=== PATIENT | female | born 1980 | race Caucasian/White ===

== ENCOUNTER 2018-02-14 19:25 | Inpatient (IN) | payer MEDICAID ==
[2018-02-14] MEDS: LACTATED RINGER'S 1,000 ML IV ×2 (21:20→22:27)
[2018-02-14 21:27] LABS: ADD MAN DIFF? NO
[2018-02-14 21:30] LABS: BASOPHILS % 0.2 % (0.0-2.0); EOSINOPHILS % 0.2 % (0.0-7.0); HEMATOCRIT 35.8 % (37.0-47.0); HEMOGLOBIN 12.7 g/dl (12.0-16.0); LYMPHOCYTES # 1.5 10^3/ul (0.8-2.9); LYMPHOCYTES % 16.5 % (15.0-51.0); MEAN CORPUSCULAR HEMOGLOBIN 33.3 pg (29.0-33.0); MEAN CORPUSCULAR HGB CONC 35.5 g/dl (32.0-37.0); MEAN PLATELET VOLUME 10.7 fl (7.4-10.4); MONOCYTES % 10.6 % (0.0-11.0); NEUTROPHIL # 6.7 10^3/ul (1.6-7.5); NEUTROPHILS % 71.7 % (39.0-77.0); PLATELET COUNT 218 10^3/UL (140-415); RED BLOOD COUNT 3.81 10^6/ul (4.20-5.40); RED CELL DISTRIBUTION WIDTH 13.4 % (11.5-14.5)
[2018-02-14 21:30] LABS: WHITE BLOOD COUNT 9.3 10^3/ul (4.8-10.8)
[2018-02-14] MEDS ORDERED: CARBOPROST 250 MCG INJ IM (21:30)
[2018-02-14] MEDS ORDERED: METHYLERGONOVINE 0.2 MG INJ IM (21:30)
[2018-02-14] MEDS ORDERED: MISOPROSTOL 200 MCG TAB PR (21:30)
[2018-02-14] MEDS ORDERED: CEFAZOLIN 2 GM/50 ML (PMX) 50 ML IV (21:30)
[2018-02-14] MEDS ORDERED: OXYTOCIN 30 UNITS/LR 500 ML IV ×2 (21:30)
[2018-02-14 21:58] LABS: INR 0.87; PARTIAL THROMBOPLASTIN TIME 29.7 Sec (25.0-35.0); PROTIME 11.9 Sec (11.9-14.9); PT RATIO 0.9
[2018-02-14 22:27] LABS: GLUCOSE 90 mg/dl (70-220)
[2018-02-14] MEDS: ONDANSETRON 4 MG INJ IV (23:14)
[2018-02-14] MEDS: CITRIC ACID/SODIUM CITRATE 15 ML CUP PO (23:14)
[2018-02-15] MEDS ORDERED: OXYTOCIN 10 UNIT INJ (00:09)
[2018-02-15] MEDS ORDERED: morphine SULFATE/PF (10 MG/10 ML) INJ (00:09)
[2018-02-15] MEDS ORDERED: PHENYLephrine (100 MCG/ML) 5ML SYG ×3 (00:09→00:41)
[2018-02-15] MEDS ORDERED: BUPIVACAINE 0.75%/DEXT (SPINAL) 2 ML INJ (00:10)
[2018-02-15] MEDS ORDERED: NALBUPHINE HCL (10 MG/1 ML) INJ IV (00:30)
[2018-02-15] MEDS ORDERED: HYDROmorphONE 0.5 MG/0.5 ML SYG IV ×2 (00:30)
[2018-02-15] MEDS ORDERED: ACETAMINOPHEN 500 MG TAB PO (00:30)
[2018-02-15] MEDS ORDERED: EPHEDrine SULFATE 50 MG/5 ML SYG IV (00:30)
[2018-02-15] MEDS ORDERED: morphine 2 MG INJ IV ×2 (00:30)
[2018-02-15] MEDS ORDERED: HYDROCODONE/APAP (5/325) TAB PO (00:30)
[2018-02-15] MEDS ORDERED: ALBUMIN HUMAN 5% 250 ML IV (00:30)
[2018-02-15] MEDS ORDERED: ONDANSETRON 4 MG INJ IV (00:30)
[2018-02-15] MEDS ORDERED: NALOXONE (0.4 MG/ML) INJ IV (00:30)
[2018-02-15] MEDS ORDERED: DEXAMETHASONE 4 MG/ML 1 ML INJ (00:42)
[2018-02-15] MEDS ORDERED: KETOROLAC 30 MG INJ (00:42)
[2018-02-15] MEDS ORDERED: METOCLOPRAMIDE 10 MG INJ (00:42)
[2018-02-15] MEDS ORDERED: HETASTARCH 6% NACL 500 ML (00:42)
[2018-02-15] MEDS ORDERED: MISOPROSTOL 200 MCG TAB PR (02:30)
[2018-02-15] MEDS ORDERED: CARBOPROST 250 MCG INJ IM (02:30)
[2018-02-15] MEDS ORDERED: METHYLERGONOVINE 0.2 MG INJ IM (02:30)
[2018-02-15] MEDS ORDERED: OXYTOCIN 30 UNITS/LR 500 ML IV (02:30)
[2018-02-15] MEDS ORDERED: METHYLERGONOVINE 0.2 MG TAB PO (02:30)
[2018-02-15] MEDS: OXYTOCIN 30 UNITS/LR 500 ML IV (05:40)
[2018-02-15] MEDS: DEXTROSE 5%-LR 1,000 ML IV ×2 (07:38→10:20)
[2018-02-15] MEDS: KETOROLAC 30 MG INJ IV ×2 (08:32→20:36)
[2018-02-15] MEDS: SENNA/DOCUSATE NA (8.6MG/50MG) TAB PO ×2 (08:33→20:35)
[2018-02-15] MEDS ORDERED: DEXTROSE 5%-LR 1,000 ML IV (12:00)
[2018-02-15 16:44] LABS: RAPID PLASMA REAGIN NONREACTIVE (NR)
[2018-02-15] MEDS: DIPHENHYDRAMINE 50 MG INJ IV (17:03)
[2018-02-15] MEDS: LACTATED RINGER'S 1,000 ML IV ×2 (17:05→21:30)
[2018-02-16] MEDS ORDERED: HYDROCODONE/APAP (5/325) TAB PO (00:12)
[2018-02-16] MEDS: HYDROCODONE/APAP (5/325) TAB PO ×3 (00:28→18:13)
[2018-02-16] MEDS: LACTATED RINGER'S 1,000 ML IV ×3 (05:21→21:30)
[2018-02-16] MEDS: IBUPROFEN 800 MG TAB PO ×3 (05:51→21:58)
[2018-02-16] MEDS: SENNA/DOCUSATE NA (8.6MG/50MG) TAB PO ×2 (09:10→21:58)
[2018-02-16 09:23] LABS: ADD MAN DIFF? NO
[2018-02-16 09:27] LABS: BASOPHILS % 0.2 % (0.0-2.0); EOSINOPHILS % 0.3 % (0.0-7.0); HEMATOCRIT 28.8 % (37.0-47.0); HEMOGLOBIN 9.7 g/dl (12.0-16.0); LYMPHOCYTES # 1.3 10^3/ul (0.8-2.9); LYMPHOCYTES % 12.8 % (15.0-51.0); MEAN CORPUSCULAR HGB CONC 33.7 g/dl (32.0-37.0); MEAN PLATELET VOLUME 10.4 fl (7.4-10.4); MONOCYTE # 0.9 10^3/ul (0.3-0.9); MONOCYTES % 8.9 % (0.0-11.0); NEUTROPHIL # 7.8 10^3/ul (1.6-7.5); NEUTROPHILS % 77.2 % (39.0-77.0); PLATELET COUNT 178 10^3/UL (140-415); RED BLOOD COUNT 2.94 10^6/ul (4.20-5.40); RED CELL DISTRIBUTION WIDTH 13.9 % (11.5-14.5)
[2018-02-16 09:27] LABS: WHITE BLOOD COUNT 10.1 10^3/ul (4.8-10.8)
[2018-02-16] MEDS: MAGNESIUM HYDROXIDE 30ML CUP PO ×2 (14:36→22:04)
[2018-02-16] MEDS: LANOLIN 7 GM TUBE TOP (22:04)
[2018-02-17] MEDS: HYDROCODONE/APAP (5/325) TAB PO ×3 (00:25→16:12)
[2018-02-17] MEDS: IBUPROFEN 800 MG TAB PO ×3 (05:36→21:36)
[2018-02-17] MEDS: SENNA/DOCUSATE NA (8.6MG/50MG) TAB PO ×2 (08:26→21:00)
[2018-02-17] MEDS: NA PHOSPHATE/BIPHOS 133 ML ENEMA PR (08:26)
[2018-02-17] MEDS ORDERED: MAGNESIUM CITRATE 300 ML BTL PO (14:30)
[2018-02-17] MEDS: MAGNESIUM CITRATE 300 ML BTL PO (14:58)
[2018-02-17] MEDS ORDERED: BISACODYL 10 MG SUPP PR ×2 (16:30→17:00)
[2018-02-17 19:53] LABS: HEPATITIS B SURFACE ANTIGEN NEGATIVE (NEGATIVE)
[2018-02-18] MEDS: HYDROCODONE/APAP (5/325) TAB PO ×3 (00:12→16:12)
[2018-02-18] MEDS: IBUPROFEN 800 MG TAB PO (05:32)
[2018-02-18] MEDS: DIPHTH/TET/ACEL PERTUSS (ADULT) 0.5 ML VIAL IM* (08:56)
[2018-02-18] MEDS: SENNA/DOCUSATE NA (8.6MG/50MG) TAB PO ×2 (08:56→20:55)
[2018-02-18] MEDS: MEASLES,MUMPS,RUBELLA VACCINE INJ SC* (08:57)
[2018-02-18] MEDS ORDERED: DEXTROSE 5%-LR 1,000 ML IV (13:00)
[2018-02-18] MEDS: METOCLOPRAMIDE 10 MG INJ IV ×2 (14:47→20:55)
[2018-02-18] MEDS: LACTATED RINGER'S 1,000 ML IV (14:52)
[2018-02-18 15:48] LABS: ANION GAP 9 (8-16); BLOOD UREA NITROGEN 10 mg/dl (7-20); CALCIUM 8.7 mg/dl (8.4-10.2); CARBON DIOXIDE 25 mmol/L (21-31); CHLORIDE 110 mmol/L (97-110); CREATININE 0.51 mg/dl (0.44-1.00); GLUCOSE 78 mg/dl (70-220); POTASSIUM 3.6 mmol/L (3.5-5.1); SODIUM 140 mmol/L (135-144)
[2018-02-18] MEDS: CELECOXIB 200 MG CAP PO (20:55)
[2018-02-19] MEDS: HYDROCODONE/APAP (5/325) TAB PO ×3 (00:12→16:12)
[2018-02-19] MEDS: LACTATED RINGER'S 1,000 ML IV ×3 (00:23→15:00)
[2018-02-19] MEDS: METOCLOPRAMIDE 10 MG INJ IV ×2 (02:36→08:46)
[2018-02-19] MEDS: LANOLIN 7 GM TUBE TOP (02:36)
[2018-02-19] MEDS: SENNA/DOCUSATE NA (8.6MG/50MG) TAB PO (09:53)
[2018-02-19] MEDS: CELECOXIB 200 MG CAP PO (09:53)
== END 2018-02-19 18:10 | disposition home or self-care (01) | DRG 766 ==
LOC: OBT 19:25 → L-D 02-15 01:46 → PP1 02-15 04:28 → OBT 20:00 → L-D 20:00
PROVIDERS: Obstetrics & Gynecology
PROC: 10D00Z1 Extraction of Products of Conception, Low, Open Approach (ICD-10-PCS; principal; 2018-02-15)
PROC: 0UB70ZZ Excision of Bilateral Fallopian Tubes, Open Approach (ICD-10-PCS; 2018-02-15)
DX: O34.219 Maternal care for unspecified type scar from previous cesarean delivery (principal); O69.81X0 Labor and delivery complicated by cord around neck, without compression, not applicable or unspecified; O24.425 Gestational diabetes mellitus in childbirth, controlled by oral hypoglycemic drugs; Z3A.37 37 weeks gestation of pregnancy; Z37.0 Single live birth; Z30.2 Encounter for sterilization
CPT/HCPCS: 80048; 82947; 82962; 85025; 85610; 85730; 86592; 86850; 86900; 86901; 87340; 88302; 99464

== ENCOUNTER 2018-03-16 19:24 | Emergency (ER) | payer MEDICAID ==
[2018-03-16] MEDS ORDERED: DIPHENHYDRAMINE 50 MG INJ (19:32)
[2018-03-16] MEDS ORDERED: HALOPERIDOL 5 MG INJ (19:32)
[2018-03-16] MEDS ORDERED: LORAZEPAM 2 MG INJ (19:33)
[2018-03-16] MEDS: HALOPERIDOL 5 MG INJ IM (19:38)
[2018-03-16] MEDS: DIPHENHYDRAMINE 50 MG INJ IM (19:38)
[2018-03-16] MEDS: LORAZEPAM 2 MG INJ IM (19:39)
[2018-03-16 20:19] LABS: ADD MAN DIFF? NO
[2018-03-16 20:22] LABS: BASOPHILS % 0.6 % (0.0-2.0); EOSINOPHILS # 0.1 10^3/ul (0.0-0.5); HEMATOCRIT 40.8 % (37.0-47.0); HEMOGLOBIN 13.8 g/dl (12.0-16.0); LYMPHOCYTES # 1.9 10^3/ul (0.8-2.9); LYMPHOCYTES % 27.2 % (15.0-51.0); MEAN CORPUSCULAR HEMOGLOBIN 32.1 pg (29.0-33.0); MEAN CORPUSCULAR HGB CONC 33.8 g/dl (32.0-37.0); MEAN CORPUSCULAR VOLUME 94.9 fl (82.0-101.0); MEAN PLATELET VOLUME 10.1 fl (7.4-10.4); MONOCYTE # 0.7 10^3/ul (0.3-0.9); NEUTROPHIL # 4.3 10^3/ul (1.6-7.5); NEUTROPHILS % 60.5 % (39.0-77.0); PLATELET COUNT 270 10^3/UL (140-415); RED CELL DISTRIBUTION WIDTH 12.4 % (11.5-14.5)
[2018-03-16 20:22] LABS: WHITE BLOOD COUNT 7.1 10^3/ul (4.8-10.8)
[2018-03-16 20:41] LABS: ACETAMINOPHEN < 10.0 ug/ml (10.0-30.0); ALANINE AMINOTRANSFERASE 53 IU/L (13-69); ALBUMIN 4.1 g/dl (3.3-4.9); ALBUMIN/GLOBULIN RATIO 1.17; ALKALINE PHOSPHATASE 98 IU/L (42-121); ANION GAP 15 (8-16); ASPARTATE AMINO TRANSFERASE 29 IU/L (15-46); BILIRUBIN,INDIRECT 0.3 mg/dl (0-1.1); BILIRUBIN,TOTAL 0.3 mg/dl (0.2-1.3); BLOOD UREA NITROGEN 10 mg/dl (7-20); CALCIUM 9.8 mg/dl (8.4-10.2); CARBON DIOXIDE 24 mmol/L (21-31); CHLORIDE 105 mmol/L (97-110); ETHANOL < 10.0 mg/dl; GLUCOSE 94 mg/dl (70-220); POTASSIUM 3.5 mmol/L (3.5-5.1); SALICYLATE < 1.0 mg/dl (5.0-30.0); SODIUM 140 mmol/L (135-144); TOTAL PROTEIN 7.6 g/dl (6.1-8.1)
[2018-03-16] MEDS: SOD CHLORIDE 0.9% 1,000 ML IV (21:24)
[2018-03-16 21:57] LABS: ADD UMIC YES; UR AMORPHOUS CRYSTAL FEW /HPF (NONE SEEN); UR ASCORBIC ACID 20 mg/dL (NEGATIVE); UR BACTERIA FEW /HPF (NONE SEEN); UR BILIRUBIN (Dip) NEGATIVE (NEGATIVE); UR BLOOD (Dip) 3+ mg/dL (NEGATIVE); UR CLARITY CLOUDY (CLEAR); UR COLOR YELLOW (YELLOW); UR GLUCOSE (Dip) NEGATIVE (NEGATIVE); UR KETONES (Dip) NEGATIVE (NEGATIVE); UR LEUKOCYTE ESTERASE (Dip) 2+ Leu/ul (NEGATIVE); UR MUCUS FEW /HPF (NONE SEEN); UR NITRITE (Dip) NEGATIVE (NEGATIVE); UR RBC 3 /HPF (0-5); UR SPECIFIC GRAVITY (Dip) 1.009 (1.003-1.030); UR SQUAMOUS EPITHELIAL CELL MANY /HPF (FEW); UR TOTAL PROTEIN (Dip) 1+ mg/dl (NEGATIVE); UR UROBILINOGEN (Dip) NEGATIVE (NEGATIVE); UR WBC 29 /HPF (0-5)
[2018-03-16 22:08] LABS: BARBITURATES Negative (NEGATIVE); BENZODIAZEPINES Negative (NEGATIVE); CANNABINOIDS Negative (NEGATIVE); COCAINE Negative (NEGATIVE); OPIATES Negative (NEGATIVE)
[2018-03-16 22:54] LABS: AMPHETAMINE/METHAMPHETAMINE Negative (NEGATIVE)
[2018-03-17] MEDS: CEPHALEXIN 500 MG CAP PO (03:22)
== END 2018-03-17 12:20 | disposition home or self-care (01) ==
LOC: E/R 03-17 12:20
DX: F23 Brief psychotic disorder (principal); F79 Unspecified intellectual disabilities; R45.1 Restlessness and agitation; F41.9 Anxiety disorder, unspecified; N30.00 Acute cystitis without hematuria; R00.0 Tachycardia, unspecified; Z91.14 Patient's other noncompliance with medication regimen
CPT/HCPCS: 36415; 80053; 80307; 81001; 81025; 85025; 93005; 96360; 96361; 96372; 99284-25

== ENCOUNTER 2018-03-20 01:00 | Emergency (ER) | payer MEDICAID ==
[2018-03-20] MEDS: ACETAMINOPHEN 500 MG TAB PO (01:47)
[2018-03-20] MEDS: KETOROLAC 15 MG INJ IM (01:55)
== END 2018-03-20 02:11 | disposition home or self-care (01) ==
LOC: FTE 02:11
DX: R51 Headache (principal); Z86.59 Personal history of other mental and behavioral disorders
CPT/HCPCS: 96372; 99284-25